=== PATIENT | male | born 1940 | race Caucasian/White ===

== ENCOUNTER 2019-03-25 12:11 | Observation (INO) ==
[2019-03-25] MEDS ORDERED: GADOBENATE DIMEGLUMINE 20 ML/VIAL IV ONE (12:12)
[2019-03-25 13:03] LABS: POC Blood Urea Nitrogen 17 mg/dl (8-23); POC CO2 27 mmol/L (22-30); POC Calcium, Ionized 1.15 mmol/L (1.16-1.32); POC Chloride 99 mmol/L (96-108); POC Creatinine 1.2 mg/dl (0.7-1.2); POC Glucose, Random 101 mg/dL (70-105); POC Potassium 3.8 mmol/L (3.3-5.1); POC Sodium 135 mmol/L (133-145)
--- NOTE | 2019-03-25 13:27 | Emergency Department Note ---
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 Childress, infectious disease specialist. He is not having any trouble now besides his chronic cough nor is he having fever. He is not immunocompromised. Dr. Childress called me personally and we discussed the case prior to him coming in. The concern is that the patient needs a work-up to make sure he does not have brain lesions before coming in the hospital so we discussed specific test order on that count. Again the patient denies any sp ecific symptoms besides a chronic cough. On review of systems patient notes that he has some ill fitting dentures, denies any rheumatologic disease besides degenerative arthritis. HIV was negative outpatient testing - Related Data Home Medications Medication Instructions Recorded Confirmed Ascorbate Calcium [Vitamin C] 500 mg PO DAILY 03/25/19 03/25/19 Aspirin [Aspirin EC] 325 mg PO DAILY 03/25/19 03/25/19 Atorvastatin [Lipitor] 40 mg PO HS 03/25/19 03/25/19 Calcium Carbonate/Vitamin D3 1 tab PO DAILY 03/25/19 03/25/19 [Calcium 600-Vit D3 400 Tablet] Clindamycin HCl [Cleocin] 300 mg PO TID 03/25/19 03/25/19 Hydrochlorothiazide [Oretic] 25 mg PO DAILY 03/25/19 03/25/19 Losartan Potassium [Cozaar] 100 mg PO DAILY 03/25/19 03/25/19 Lutein [Natural Lutein] 20 mg PO DAILY 03/25/19 03/25/19 Multivitamin [Daily Multiple 1 tab PO DAILY 03/25/19 03/25/19 Vitamin] Nabumetone [Relafen] 750 mg PO BIDCC 03/25/19 03/25/19 Omeprazole [PriLOSEC] 20 mg PO ACB 03/25/19 03/25/19 Resveratrol 250 mg PO DAILY 03/25/19 03/25/19 Ubidecarenone [Co Q-10] 200 mg PO DAILY 03/25/19 03/25/19 Vitamin E 400 unit PO DAILY 03/25/19 03/25/19 Allergies Allergy/AdvReac Type Severity Reaction Status Date / Time doxycycline Allergy Mild Rash Verified 03/25/19 12:19 Review of Systems All systems ED: reviewed and negative except as stated. Past Medical History - Past Medical History Attestation: Yes: The following information was validated with the patient. Medical history: Reports: arthritis (Osteo-of the knee), hypertension - Social History smoking status: Current every day smoker Physical Exam No acute distress resting comfortably. Normocephalic atraumatic. Conjunctive are clear sclerae white nonicteric. No nasal discharge or congestion. Oropharynx is pink and moist. Tongue is midline face is symmetrical. Neck is supple without lymphadenopathy or thyromegaly. No carotid bruit. Heart is regu lar rate and rhythm no murmur appreciated. Lungs are clear to auscultation bilaterally without wheezes rales rhonchi or respiratory distress. Abdomen is soft nontender nondistended. Trace to +1 edema bilaterally at ankles. He is awake alert oriented able to answer questions appropriately. No dysarthria or ataxia. I do not see a resting tremor. I watched him stand up and move around take off his shirt etc. and he seems to be moving without difficulty. I do not see any focal neurologic deficit or weakness on gross examination Limitations: no limitations Course Vital Signs Temperature 97.1 F 03/25/19 12:12 Pulse Rate 64 03/25/19 12:12 Respiratory Rate 18 03/25/19 12:12 Blood Pressure 134/73 03/25/19 12:12 Pulse Oximetry (%) 95 03/25/19 12:12 Temperature 97.1 F 03/25/19 12:12 Pulse Rate 57 L 03/25/19 14:13 Respiratory Rate 15 03/25/19 14:13 Blood Pressure 126/73 03/25/19 14:13 Pulse Oximetry (%) 97 03/25/19 14:13 Shortness of Breath/Dyspnea - Lab Data Lab results reviewed: Yes I reviewed the patient's lab results. Result diagrams: 03/25/19 12:33 03/25/19 12:33 Lab Results 03/25/19 03/25/19 03/25/19 Range/Units 12:33 12:33 12:33 WBC 4.5 (4.50-11.00) K/mcL RBC 3.96 L (4.63-6.08) M/mcL Hgb 13.1 L (13.7-17.5) g/dL Hct 36.6 L (40.1-51.0) % POC Hct (41.0-55.0) % MCV 92.4 (80.0-100.0) fL MCH 33.1 (26.0-34.0) pg MCHC 35.8 (31.0-36.0) g/dL RDW 12.8 (11.5-14.5) % Plt Count 163 (140-440) K/mcL MPV 11.0 H (7.4-10.4) fL Gran % 54.9 (38.0-78.0) % Lymph % (Auto) 26.6 (15.5-49.0) % [place] % (Auto) 12.0 (1.0-12.0) % Eos % (Auto) 4.9 (0.0-7.0) % Baso % (Auto) 1.6 (0.0-2.0) % Gran # 2.48 (1.80-8.00) K/mcL Lymph # (Auto) 1.20 L (1.50-4.80) K/mcL [place] # (Auto) 0.54 (0.10-0.90) K/mcL Eos # (Auto) 0.22 (0.00-0.70) K/mcL Baso # (Auto) 0.07 (0.00-0.30) K/mcL VBG Lactic Acid 1.1 (0.5-2.0) mmol/L POC Sodium (133-145) mmol/L Sodium 133 (133-145) mmol/L POC Potassium (3.3-5.1) mmol/L Potassium 3.9 (3.3-5.1) mmol/L POC Chloride (96-108) mmol/L Chloride 96 (96-108) mmol/L Carbon Dioxide 23 (22-30) mmol/L POC Total CO2 (22-30) mmol/L Anion Gap 14.0 (8-16) POC BUN (8-23) mg/dl BUN 15 (8-23) mg/dl Creatinine 1.3 H (0.7-1.2) mg/dl POC Creatinine (0.7-1.2) mg/dl GFR Calculation 51 Glucose 103 (70-105) mg/dL POC Glucose (70-105) mg/dL Calcium 9.6 (8.6-10.4) mg/dl POC WB Ioniz Calcium (1.16-1.32) mmol/L Total Bilirubin 0.5 (0.0-1.0) mg/dL AST 42 H (0-37) U/l ALT 23 (0-40) U/l Alkaline Phosphatase 89 (39-117) U/L Total Protein 8.3 (5.9-8.4) gm/dL Albumin 4.6 (3.2-5.2) gm/dL Globulin 3.7 (2.2-3.7) gm/dL Albumin/Globulin Ratio 1.2 (1.0-2.3) 03/25/19 Range/Units 12:55 WBC (4.50-11.00) K/mcL RBC (4.63-6.08) M/mcL Hgb (13.7-17.5) g/dL Hct (40.1-51.0) % POC Hct 38.0 L (41.0-55.0) % MCV (80.0-100.0) fL MCH (26.0-34.0) pg MCHC (31.0-36.0) g/dL RDW (11.5-14.5) % Plt Count (140-440) K/mcL MPV (7.4-10.4) fL Gran % (38.0-78.0) % Lymph % (Auto) (15.5-49.0) % [place] % (Auto) (1.0-12.0) % Eos % (Auto) (0.0-7.0) % Baso % (Auto) (0.0-2.0) % Gran # (1.80-8.00) K/mcL Lymph # (Auto) (1.50-4.80) K/mcL [place] # (Auto) (0.10-0.90) K/mcL Eos # (Auto) (0.00-0.70) K/mcL Baso # (Auto) (0.00-0.30) K/mcL VBG Lactic Acid (0.5-2.0) mmol/L POC Sodium 135 (133-145) mmol/L Sodium (133-145) mmol/L POC Potassium 3.8 (3.3-5.1) mmol/L Potassium (3.3-5.1) mmol/L POC Chloride 99 (96-108) mmol/L Chloride (96-108) mmol/L Carbon Dioxide (22-30) mmol/L POC Total CO2 27 (22-30) mmol/L Anion Gap (8-16) POC BUN 17 (8-23) mg/dl BUN (8-23) mg/dl Creatinine (0.7-1.2) mg/dl POC Creatinine 1.2 (0.7-1.2) mg/dl GFR Calculation Glucose (70-105) mg/dL POC Glucose 101 (70-105) mg/dL Calcium (8.6-10.4) mg/dl POC WB Ioniz Calcium 1.15 L (1.16-1.32) mmol/L Total Bilirubin (0.0-1.0) mg/dL AST (0-37) U/l ALT (0-40) U/l Alkaline Phosphatase (39-117) U/L Total Protein (5.9-8.4) gm/dL Albumin (3.2-5.2) gm/dL Globulin (2.2-3.7) gm/dL Albumin/Globulin Ratio (1.0-2.3) - Radiology Data Radiology results reviewed: Yes I reviewed the patient's radiology results. MRI does not show evidence of fungal masses in the brain or orbits Disposition Pt seen by AVIATION SAFETY EQUIPMENT TECHNICIAN/PA only: No Clinical Impression: Cryptococcal pneumonitis Summary: MRI of the brain and orbits is ordered. Laboratories ordered RI does not show evidence of brain or orbital mass from Cryptococcus. Laboratory. Stable. Discussed case with Dr. Pak. He will consult on p atient will be admitted to Dr. Monique Disposition: Xfer As Inpt ([facility]) Condition: Fair Referrals: Everton Boucher MD [Primary Care Provider] - Angelito Childress MD [Physician] -
[2019-03-25 13:29] LABS: Basophils # (Auto) 0.07 K/mcL (0.00-0.30); Basophils % (Auto) 1.6 % (0.0-2.0); Eosinophils # (Auto) 0.22 K/mcL (0.00-0.70); Eosinophils % (Auto) 4.9 % (0.0-7.0); Granulocytes % (Auto) 54.9 % (38.0-78.0); Hematocrit 36.6 % (40.1-51.0); Hemoglobin 13.1 g/dL (13.7-17.5); Lymphocytes % (Auto) 26.6 % (15.5-49.0); Mean Cell Volume 92.4 fL (80.0-100.0); Mean Corpuscular HGB Conc 35.8 g/dL (31.0-36.0); Monocytes # (Auto) 0.54 K/mcL (0.10-0.90); Platelet Count 163 K/mcL (140-440); RBC 3.96 M/mcL (4.63-6.08); Red Cell Distribution Width 12.8 % (11.5-14.5); WBC 4.5 K/mcL (4.50-11.00)
[2019-03-25 13:48] LABS: ALT/SGPT 23 U/l (0-40); AST/SGOT 42 U/l (0-37); Albumin 4.6 gm/dL (3.2-5.2); Albumin/Globulin Ratio 1.2 (1.0-2.3); Alkaline Phosphatase 89 U/L (39-117); Bilirubin,Total 0.5 mg/dL (0.0-1.0); Blood Urea Nitrogen 15 mg/dl (8-23); Calcium 9.6 mg/dl (8.6-10.4); Carbon Dioxide 23 mmol/L (22-30); Chloride 96 mmol/L (96-108); Globulin 3.7 gm/dL (2.2-3.7); Glomerular Filtration Rate 51; Glucose 103 mg/dL (70-105)
--- NOTE | 2019-03-25 14:30 | Magnetic Resonance Report ---
CLINICAL INFORMATION: Cryptococcal meningitis TECHNIQUE: Sagittal, axial, coronal images of the brain. 19 mL MultiHance injected intravenously. COMPARISON: None. FINDINGS: No pathologic leptomeningeal or dural enhancement. Basilar cisterns are normal. No MR evidence for meningitis. Patient gives a history of cryptococcal meningitis although I am not given a history of immunocompromise. Clinical correlation is necessary. There is severe white matter abnormality in both cerebral hemispheres. There is extensive periventricular signal abnormality and subcortical white matter abnormality. There is no pathologic contrast enhancement. Appearance is consistent with severe white matter disease, probably secondary to small vessel ischemic change. Demyelinating disease, Lyme disease, ADEM could have a similar appearance. There is no brain abscess. No focal mass. There is no vasogenic edema or contrast enhancement. There is no restricted diffusion. No susceptibility. No evidence for hemorrhagic abnormality. Brainstem and cerebellum are negative. No intra-axial abnormality. Normal flow void within vessels at the base of the brain. Cavernous sinuses are negative. Temporal bones are negative. No evidence for mastoiditis. Frontal, and maxillary sinuses are negative. There is mild mucosal thickening within anterior ethmoid sinuses bilaterally. There is a 9 mm soft tissue abnormality which is within the clivus. This is anterior to the sella turcica. This is nonenhancing. This has a benign appearance. There is no associated bone destruction. No enhancing abnormality. Appearance is not consistent with aggressive infection. Orbits are negative. No intraorbital mass. Extraocular muscles are normal. Intraorbital fat and optic nerves are negative. IMPRESSION: 1. No pathologic leptomeningeal or dural enhancement. No evidence for meningitis 2. Severe white matter abnormality in both cerebral hemispheres. No enhancing lesions. No intraaxial abscess 3. Paranasal sinuses are negative. Orbits are negative. 4. 9 mm rounded soft tissue abnormality within the clivus. This has a benign appearance Interpreted and Authenticated by: Shivam Llamas 03/25/19
--- NOTE | 2019-03-25 15:56 | Infectious Disease Consult ---
History of Present Illness Patient information: Note initiated : 03/25/19 at 3:55 pm Service Date, if different from initiated Date: [] Patient: Nuno Eugene 79 y/o M admitted on for Shortness of breath. Chief Complaint: [] Consult date: 03/25/19 Requesting Physician: Dr Citlaly Kennedy Reason for Consult: cryptococcal infection of lungs Chief complaint: I have cough History of present illness: Mr. Eugene is a 79-year old man living in [place], [place]. He has been experiencing cough and recurrent sinusitis since last 5 years. The cough has been mildly productive with occasional yellowish sputum. No blood noted ever in the sputum. The cough has fluctuated off and on, but more so has stayed the same in last 5 years. He denies any fevers, chills, night sweats, weight loss, focal weakness or numbness, vision changes, headache, neck stiffness, belly pain. Endorses exertional SOB bang noticed while climbing stairs. It has been same since last 5 years. He underwent his routine annual physical in late february 2019, when a chest xray revealed right lung mass, suspicious for malignancy.Pt underwent CT chest on 03/[address] guided biopsy on 03/18 with samples sent for cytopath and histopath. CT chest on 03/04 showed 5.8 x 3.3 x 4.8 cm mass in right lower lobe and 1.4 x 2.3 x 1 cm mass in left upper lobe. s/p biopsy of right lung mass on 03/18 with path showing acute and chronic granulomatous inflammation and cryptococci. Pt has been referred to me for further management. Pt reports coming in contact with birds frequently for feeding (mocking birds, doves, blue stephy etc) at his house. He has traveled to [facility] couple of times in last 5 years. He is originally a resident of [facility] where he was born and grew up. 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 No international travel. No antibiotic allergies except for Doxycycline which gives him a rash. Past History Past medical history: HTN Hyperlipidemia chronic sinusitis Past family history: family Hx of congestive heart failure in father and brother no Hx of cryptococcal infection in family Past social history: lives with his daughter in [place]. retired smoked until 23 years of age doesnot consume alc, doesnot inject any drugs Medications and Allergies Home Medications Medication Instructions Recorded Confirmed Type Ascorbate Calcium [Vitamin C] 500 mg PO DAILY 03/25/19 03/25/19 History Aspirin [Aspirin EC] 325 mg PO DAILY 03/25/19 03/25/19 History Atorvastatin [Lipitor] 40 mg PO HS 03/25/19 03/25/19 History Calcium Carbonate/Vitamin D3 1 tab PO DAILY 03/25/19 03/25/19 History [Calcium 600-Vit D3 400 Tablet] Clindamycin HCl [Cleocin] 300 mg PO TID 03/25/19 03/25/19 History Hydrochlorothiazide [Oretic] 25 mg PO DAILY 03/25/19 03/25/19 History Losartan Potassium [Cozaar] 100 mg PO DAILY 03/25/19 03/25/19 History Lutein [Natural Lutein] 20 mg PO DAILY 03/25/19 03/25/19 History Multivitamin [Daily Multiple 1 tab PO DAILY 03/25/19 03/25/19 History Vitamin] Nabumetone [Relafen] 750 mg PO BIDCC 03/25/19 03/25/19 History Omeprazole [PriLOSEC] 20 mg PO ACB 03/25/19 03/25/19 History Resveratrol 250 mg PO DAILY 03/25/19 03/25/19 History Ubidecarenone [Co Q-10] 200 mg PO DAILY 03/25/19 03/25/19 History Vitamin E 400 unit PO DAILY 03/25/19 03/25/19 History Allergies Allergy/AdvReac Type Severity Reaction Status Date / Time doxycycline Allergy Mild Rash Verified 03/25/19 12:19 Physical Examination Vital signs: Temp Pulse Resp BP Pulse Ox 36.2 C 56 L 15 155/99 98 03/25/19 12:12 03/25/19 15:43 03/25/19 15:43 03/25/19 15:43 03/25/19 15:43 General appearance: no acute distress Eyes pulmonary: nonicteric ENT: oropharynx moist, other (has dentures) Auscultation: left: clear, right: other (has inspiratory crackles over right lower lobe best heard below scapula) Cardiovascular: regular rate and rhythm, other (no murmur) Gastrointestinal: normoactive bowel sounds, soft, non-tender Integumentary: normal Extremities: no cyanosis, pink and warm, pulses normal, edema (over legs b/l) Musculoskeletal: no deformities normal mental status, non-focal exam, pupils equal and round, motor strength normal and symmetric, other (reflexes (biceps, brachioradialis, triceps, valentino ceps, ankle) present b/l. Sensation intact b/l upper and lower extremities) mood appropriate Results - Laboratory Findings CBC and BMP: 03/26/19 06:12 03/26/19 06:12 Abnormal lab findings: Abnormal Labs 03/25/19 03/25/19 03/25/19 12:33 12:33 12:55 RBC 3.96 L Hgb 13.1 L Hct 36.6 L POC Hct 38.0 L MPV 11.0 H Lymph # (Auto) 1.20 L Creatinine 1.3 H POC WB Ioniz Calcium 1.15 L AST 42 H Assessment and Plan - Narrative A/P Narrative: A: 1. Cryptococcal infection of both lungs: cough is the only symptom - no FINANCE SPECIALIST or eye involvement based on exam and MRI brain/orbit with contrast done today. In absence of clinical symptoms such as headache, neck stiffness, focal neuro deficit and normal neuroimaging; will defer LP as benefits outweigh risks of invasive procedure - risk factors: living in endemic area ([facility]), frequent contact with birds, age - CT chest on 03/04 showed 5.8 x 3.3 x 4.8 cm mass in right lower lobe and 1.4 x 2.3 x 1 cm mass in left upper lobe. 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 gattii infection in immunocompetent patients. Will observe him in the hospital for 2 days while on therapy. Recommendations: - Start PO Fluconazole 400 mg once daily. will plan for a 6-month course with weekly monitoring of CBC, CMP. Fax results to [phone] - send induced sputum for gram stain and C/S, fungal stain and C/S - repeat CMP on Saturday - no droplet precautions needed. Standard precautions with hand hygiene are adequate - await serum cryptococcal antigen which was sent out by PCP 2 days ago - In case there is worsening of respiratory status, consider CT chest. If there is concerns for IRIS, start PO Prednisone at 0.5 mg/kg with a taper over 2 weeks. - F/u with ID clinic 2 weeks after discharge. Angelito Childress MD Infectious diseases
[2019-03-25] MEDS ORDERED: FLUCONAZOLE 100 MG TABLET PO SCH (16:00)
[2019-03-25] MEDS ORDERED: SODIUM CHLORIDE 4 MEQ/ML IV ONE ×2 (16:30→16:45)
[2019-03-25] MEDS ORDERED: ONDANSETRON 4 MG ODT TABLET SL PRN (17:32)
[2019-03-25] MEDS ORDERED: POLYETHYLENE GLYCOL 3350 17 GM PACKET PO PRN (17:32)
[2019-03-25] MEDS ORDERED: MAGNESIUM SULFATE 2 GM/50 ML BAG IV PRN (17:32)
[2019-03-25] MEDS ORDERED: ACETAMINOPHEN 325 MG TABLET PO PRN (17:32)
[2019-03-25] MEDS ORDERED: BISACODYL 10 MG SUPP.RECT PR PRN (17:32)
[2019-03-25] MEDS ORDERED: guaiFENesin/CODEINE 10 ML UDC PO PRN (17:32)
[2019-03-25] MEDS ORDERED: MELATONIN 3 MG TABLET PO PRN (17:32)
[2019-03-25] MEDS ORDERED: NABUMETONE 750 MG TABLET PO SCH (17:32)
[2019-03-25] MEDS ORDERED: POTASSIUM CHLORIDE 20 MEQ PACKET PO PRN (17:32)
--- NOTE | 2019-03-25 20:05 | Internal Med History&Physical ---
Medical - H&P: HPI Patient information: Note initiated : 03/25/19 at 8:03 pm Service Date, if different from initiated Date: [] Patient: Nuno Eugene a 79 y/o M admitted on 03/25/19 for Shortness of breath. Chief Complaint: [] Chief complaint: Cough, recent diagnosis of cryptococcus pneumonia History of present illness: Mr. Eugene is a 79 year old M who was diagnosed with cryptococcus pneumonia following an evaluation for cough progressive over the last couple of weeks. Patient was seen by his primary care physician at [place] and underwent a CT scan that showed masslike lesion and subsequent biopsy revealed cryptococcus. Subsequently infectious is consulted and patient was asked by infectious disease specialist to be admitted for treatment while undergoing monitoring for adverse reaction to treatment. Patient was evaluated in the ER with MRI brain which was unremarkable. [facility] hospitalist service was consulted At the time evaluation patient is alert and oriented. Denies any active distress. Denies recent travel outside [facility]. He denies recent hospitalization or being on immunosuppressive work cancer therapy. He further denies prior similar episodes or high risk behavior. He lives in [place] and has moved from [facility] 6 years ago following his . He is currently retired. Denies smoking or alcoholism. Denies fever, weight loss, night sweats, rash arthralgia myalgia headache or photophobia Review of systems A 10 point review system was performed and is negative except for ones cussed above Medical - H&P: PM Medical history: Hypertension Hyperlipidemia GERD DJD Social history: Lives in [facility] Retired Moved from [place] Medical - H&P: Meds Home Medications Medication Instructions Recorded Confirmed Type Ascorbate Calcium [Vitamin C] 500 mg PO DAILY 03/25/19 03/25/19 History Aspirin [Aspirin EC] 325 mg PO DAILY 03/25/19 03/25/19 History Atorvastatin [Lipitor] 40 mg PO HS 03/25/19 03/25/19 History Calcium Carbonate/Vitamin D3 1 tab PO DAILY 03/25/19 03/25/19 History [Calcium 600-Vit D3 400 Tablet] Clindamycin HCl [Cleocin] 300 mg PO TID 03/25/19 03/25/19 History Hydrochlorothiazide [Oretic] 25 mg PO DAILY 03/25/19 03/25/19 History Losartan Potassium [Cozaar] 100 mg PO DAILY 03/25/19 03/25/19 History Lutein [Natural Lutein] 20 mg PO DAILY 03/25/19 03/25/19 History Multivitamin [Daily Multiple 1 tab PO DAILY 03/25/19 03/25/19 History Vitamin] Nabumetone [Relafen] 750 mg PO BIDCC 03/25/19 03/25/19 History Omeprazole [PriLOSEC] 20 mg PO ACB 03/25/19 03/25/19 History Resveratrol 250 mg PO DAILY 03/25/19 03/25/19 History Ubidecarenone [Co Q-10] 200 mg PO DAILY 03/25/19 03/25/19 History Vitamin E 400 unit PO DAILY 03/25/19 03/25/19 History Allergies Allergy/AdvReac Type Severity Reaction Status Date / Time doxycycline Allergy Mild Rash Verified 03/25/19 12:19 Medical - H&P: Exam - Constitutional Vitals: Temp Pulse Resp BP Pulse Ox 98.0 F 56 L 24 H 147/82 95 03/25/19 18:53 03/25/19 18:53 03/25/19 18:53 03/25/19 18:53 03/25/19 18:53 General appearance: no acute distress Exam: Alert oriented and ambulating Head normocephalic Oral cavity dry No ear nose discharge Neck lymphadenopathy S1-S2 regular rhythm no murmur Diminished breath sounds bases Abdomen soft nontender nondistended Lower extremity no sinus clubbing no joint swelling Skin no suspicious lesion Psych alert cooperative Neuro nonfocal Medical - H&P: Reslt - Labs CBC & Chem 7: 03/25/19 12:33 03/25/19 12:33 Labs: Short CBC 03/25/19 Range/Units 12:33 WBC 4.5 (4.50-11.00) K/mcL Hgb 13.1 L (13.7-17.5) g/dL Hct 36.6 L (40.1-51.0) % Plt Count 163 (140-440) K/mcL BMP 03/25/19 12:33 Sodium 133 Potassium 3.9 Chloride 96 Carbon Dioxide 23 BUN 15 Creatinine 1.3 H Glucose 103 Calcium 9.6 Liver Function 03/25/19 Range/Units 12:33 Total Bilirubin 0.5 (0.0-1.0) mg/dL AST 42 H (0-37) U/l ALT 23 (0-40) U/l Alkaline Phosphatase 89 (39-117) U/L Albumin 4.6 (3.2-5.2) gm/dL Medical - H&P: A/P (1) Cryptococcal pneumonitis Current visit: Yes Status: Acute * Cryptococcal pneumonia bilateral. Immunocompetent patient. ID on board. Started on fluconazole 400. Patient leave admitted for observation while ongoing close monitoring for IRIS * Hypertension continue thiazide/ARB * GERD continue PPI * Hyperlipidemia continue statin * Prophylaxis heparin * Full code Plan * Observation admit * Antifungals per ID * Pre-existing medical condition management as above * PT OT nutrition support * Possible discharge in 48 hours
[2019-03-25] MEDS: SENNOSIDES/DOCUSATE SODIUM 1 TAB TABLET PO SCH (21:05)
[2019-03-25] MEDS: DOCUSATE SODIUM 100 MG CAPSULE PO SCH (21:05)
[2019-03-25] MEDS: HEPARIN 5,000 UNIT/ML VIAL SQ SCH (21:05)
[2019-03-25] MEDS: ATORVASTATIN 40 MG TABLET PO SCH (21:05)
[2019-03-25] MEDS: 0.9 % SODIUM CHLORIDE 10 ML SYRINGE IV SCH (21:06)
[2019-03-26] MEDS: 0.9 % SODIUM CHLORIDE 10 ML SYRINGE IV SCH ×3 (05:19→21:19)
[2019-03-26] MEDS: OMEPRAZOLE 20 MG CAPSULE PO SCH (07:16)
[2019-03-26] MEDS: LOSARTAN 50 MG TABLET PO SCH (08:53)
[2019-03-26] MEDS: HYDROCHLOROTHIAZIDE 25 MG TABLET PO SCH (08:53)
[2019-03-26] MEDS: FLUCONAZOLE 100 MG TABLET PO SCH (08:53)
[2019-03-26] MEDS: DOCUSATE SODIUM 100 MG CAPSULE PO SCH ×2 (08:53→21:18)
[2019-03-26] MEDS: HEPARIN 5,000 UNIT/ML VIAL SQ SCH ×2 (08:53→21:17)
[2019-03-26] MEDS: NABUMETONE 500 MG TABLET PO SCH ×2 (08:53→17:32)
[2019-03-26] MEDS: ASPIRIN 325 MG ENTERIC COATED TABLET PO SCH (08:53)
[2019-03-26] MEDS: MULTIVIT,THER IRON,CA,FA & MIN 1 TABLET PO SCH (08:53)
[2019-03-26] MEDS: RESVERATROL 250 MG PO SCH (08:56)
[2019-03-26 09:55] LABS: Basophils # (Auto) 0.06 K/mcL (0.00-0.30); Basophils % (Auto) 1.4 % (0.0-2.0); Eosinophils # (Auto) 0.21 K/mcL (0.00-0.70); Granulocytes % (Auto) 51.1 % (38.0-78.0); Hematocrit 33.4 % (40.1-51.0); Hemoglobin 12.1 g/dL (13.7-17.5); Lymphocytes # (Auto) 1.18 K/mcL (1.50-4.80); Lymphocytes % (Auto) 28.2 % (15.5-49.0); Mean Corpuscular HGB Conc 36.2 g/dL (31.0-36.0); Mean Platelet Volume 10.6 fL (7.4-10.4); Monocytes # (Auto) 0.64 K/mcL (0.10-0.90); Monocytes % (Auto) 15.3 % (1.0-12.0); Platelet Count 168 K/mcL (140-440); RBC 3.63 M/mcL (4.63-6.08); Red Cell Distribution Width 12.8 % (11.5-14.5); WBC 4.2 K/mcL (4.50-11.00)
--- NOTE | 2019-03-26 10:18 | Internal Med Progress Note ---
Medical - PN: Subj Patient information: Note initiated : 03/26/19 at 10:15 am Service Date, if different from initiated Date: [] Patient: Nuno Eugene a 79 y/o M admitted on 03/25/19 for Shortness of breath. Chief Complaint: [] Interval history: Mr. Eugene is a 79 year old M who was diagnosed with cryptococcus pneumonia following an evaluation for cough progressive over the last couple of weeks. Patient was seen by his primary care physician at [place] and underwent a CT scan that showed masslike lesion and subsequent biopsy revealed cryptococcus. Subsequently infectious is consulted and patient was asked by infectious disease specialist to be admitted for treatment while undergoing monitoring for adverse reaction to treatment. Patient was evaluated in the ER with MRI brain which was unremarkable. [facility] hospitalist service was consulted At the time evaluation patient is alert and oriented. Denies any active distress. Denies recent travel outside [facility]. He denies recent hospitalization or being on immunosuppressive work cancer therapy. He further denies prior similar episodes or high risk behavior. He lives in [place] and has moved from [facility] 6 years ago following his . He is currently retired. Denies smoking or alcoholism. Denies fever, weight loss, night sweats, rash arthralgia myalgia headache or photophobia 03/26-patient doing well. No overnight events. No concerns per staff. Denies fever chills or worsening cough. Ambulating. Anticipate discharge in 24 hours. Continue monitoring biochemical profile/LFTs and response to treatment. - Constitutional Vitals: Vital Signs Temp Pulse Resp BP Pulse Ox 96.9 F L 57 L 18 131/72 96 03/26/19 07:05 03/26/19 07:05 03/26/19 07:05 03/26/19 07:05 03/26/19 07:05 Period Temp Pulse Resp BP Sys/Hernandez Pulse Ox Last 24 Hr 96.9 F-98.0 F 51-66 11-24 120-155/56-105 93-100 Intake and Output 03/25/19 03/26/19 03/26/19 21:59 05:59 13:59 Intake Total 200 240 Output Total 900 350 685 Balance -900 -150 -445 Weight 206 lb Intake & Output: Intake & Output 03/25/19 03/26/19 03/26/19 21:59 05:59 13:59 Intake Total 200 240 Output Total 900 350 685 Balance -900 -150 -445 Weight 206 lb Intake: Oral 200 240 Output: Void Amount 900 350 685 Other: Urine Appearance Clear Clear Clear Urine Color Bright Yellow Bright Yellow Bright Yellow Urine Odor Normal General appearance: no acute distress Exam: Alert oriented Nonlabored breathing No anxiety No lymphedema Medical - PN: Obj Da - Labs CBC & Chem 7: 03/25/19 18:02 03/25/19 12:33 Labs: Abnormal Lab Results 03/25/19 03/25/19 03/25/19 18:02 12:55 12:33 WBC 4.2 L RBC 3.63 L Hgb 12.1 L Hct 33.4 L POC Hct 38.0 L MCHC 36.2 H MPV 10.6 H [place] % (Auto) 15.3 H Lymph # (Auto) 1.18 L Creatinine 1.3 H POC WB Ioniz Calcium 1.15 L AST 42 H 03/25/19 12:33 WBC RBC 3.96 L Hgb 13.1 L Hct 36.6 L POC Hct MCHC MPV 11.0 H [place] % (Auto) Lymph # (Auto) 1.20 L Creatinine POC WB Ioniz Calcium AST Meds: Medications Acetaminophen (Tylenol) 650 mg PO Q4-6HP PRN; Protocol PRN Reason: Per Pain Protocol/Fever > 101 Aspirin (Ecotrin) 325 mg PO DAILY [facility] Last Admin: 03/26/19 08:53 Dose: 325 mg Documented by: Atorvastatin Calcium (Lipitor) 40 mg PO HS [facility] Last Admin: 03/25/19 21:05 Dose: 40 mg Documented by: Bisacodyl (Dulcolax) 10 mg CO Q2-3DAYS PRN PRN Reason: Constipation Docusate Sodium (Colace) 100 mg PO BID [facility] Last Admin: 03/26/19 08:53 Dose: 100 mg Documented by: Fluconazole (Diflucan) 400 mg PO DAILY [facility]; Protocol Last Admin: 03/26/19 08:53 Dose: 400 mg Documented by: Guaifenesin/Codeine Phosphate (Robitussin Ac) 10 ml PO Q4HP PRN PRN Reason: Cough Heparin Sodium (Porcine) (Heparin) 5,000 unit SQ Q12 [facility] Last Admin: 03/26/19 08:53 Dose: 5,000 unit Documented by: Hydrochlorothiazide (Oretic) 25 mg PO DAILY [facility] Last Admin: 03/26/19 08:53 Dose: 25 mg Documented by: Magnesium Sulfate (Magnesium Sulfate) 2 gm in 50 mls @ 50 mls/hr IV UD PRN PRN Reason: MG = or < 1.7 Iron Carb/Multivit/[employer]/Folic Acid (Multivitamin W/Minerals) 1 tab PO DAILY [facility] Last Admin: 03/26/19 08:53 Dose: 1 tab Documented by: Losartan Potassium (Cozaar) 100 mg PO DAILY [facility] Last Admin: 03/26/19 08:53 Dose: 100 mg Documented by: Melatonin (Melatonin 3mg Tablet) 3 mg PO HSP PRN PRN Reason: Insomnia Nabumetone (Relafen) 750 mg PO BIDCC [facility]; Protocol Last Admin: 03/26/19 08:53 Dose: 750 mg Documented by: Omeprazole (Prilosec) 20 mg PO ACB [facility] Last Admin: 03/26/19 07:16 Dose: 20 mg Documented by: Ondansetron HCl (Zofran Odt) 4 mg SL Q4-6HP PRN; Protocol PRN Reason: Nausea And Vomiting Resveratrol 250 Mg (Tab) 1 dose PO DAILY [facility] Last Admin: 03/26/19 08:56 Dose: Not Given Documented by: Polyethylene Glycol (Miralax) 17 gm PO DAILYP PRN PRN Reason: Constipation Potassium Chloride (Klor-Con) 40 meq PO DAILYP PRN PRN Reason: K+ < 3.5 Senna/Docusate Sodium (Senna Plus Tablet) 1 tab PO HS [facility] Last Admin: 03/25/19 21:05 Dose: Not Given Documented by: Sodium Chloride (Saline Flush) 10 ml IV Q8 [facility] Last Admin: 03/26/19 05:19 Dose: 10 ml Documented by: Medical - PN: A/P - Time Spent With Patient Total time spent is greater than 50% in coordination of care (as documented) at patient's floor/unit and/or counseling patient: 15 - 24 minutes (1) Cryptococcal pneumonitis Status: Acute Assessment and plan: * Cryptococcal pneumonia bilateral. Immunocompetent patient. ID initiated on fluconazole 400. Continue close monitoring for IRIS * Hypertension well-controlled on home dose thiazide/ARB * GERD continue PPI * Hyperlipidemia continue statin * Prophylaxis heparin * Full code Plan * Continue observation * Pre-existing medical condition management as above * PT OT nutrition support Current Visit: Yes
[2019-03-26 10:54] LABS: Basophils # (Auto) 0.05 K/mcL (0.00-0.30); Basophils % (Auto) 1.4 % (0.0-2.0); Eosinophils # (Auto) 0.21 K/mcL (0.00-0.70); Eosinophils % (Auto) 5.9 % (0.0-7.0); Granulocytes % (Auto) 51.3 % (38.0-78.0); Hematocrit 32.9 % (40.1-51.0); Hemoglobin 11.9 g/dL (13.7-17.5); Lymphocytes # (Auto) 0.96 K/mcL (1.50-4.80); Lymphocytes % (Auto) 27.2 % (15.5-49.0); Mean Cell Volume 92.2 fL (80.0-100.0); Mean Corpuscular HGB Conc 36.2 g/dL (31.0-36.0); Mean Platelet Volume 11.1 fL (7.4-10.4); Monocytes % (Auto) 14.2 % (1.0-12.0); Platelet Count 153 K/mcL (140-440); RBC 3.57 M/mcL (4.63-6.08); Red Cell Distribution Width 12.8 % (11.5-14.5); WBC 3.5 K/mcL (4.50-11.00)
[2019-03-26 11:11] LABS: ALT/SGPT 18 U/l (0-40); AST/SGOT 31 U/l (0-37); Albumin 3.8 gm/dL (3.2-5.2); Albumin/Globulin Ratio 1.2 (1.0-2.3); Alkaline Phosphatase 69 U/L (39-117); Bilirubin,Direct < 0.2 mg/dL (0.0-0.3); Bilirubin,Total 0.6 mg/dL (0.0-1.0); Blood Urea Nitrogen 15 mg/dl (8-23); Calcium 9.2 mg/dl (8.6-10.4); Carbon Dioxide 24 mmol/L (22-30); Chloride 100 mmol/L (96-108); Globulin 3.1 gm/dL (2.2-3.7); Glomerular Filtration Rate 51; Glucose 88 mg/dL (70-105); Lactate Dehydrogenase 207 U/L (94-250); Phosphorous 4.1 mg/dL (2.7-4.5); Triglycerides 274 mg/dl (<150); Uric Acid 9.9 mg/dL (2.5-8.0)
[2019-03-26] MEDS: ATORVASTATIN 40 MG TABLET PO SCH (21:18)
[2019-03-26] MEDS: SENNOSIDES/DOCUSATE SODIUM 1 TAB TABLET PO SCH (21:18)
[2019-03-27] MEDS: 0.9 % SODIUM CHLORIDE 10 ML SYRINGE IV SCH (06:06)
[2019-03-27 08:09] LABS: Basophils # (Auto) 0.05 K/mcL (0.00-0.30); Basophils % (Auto) 1.6 % (0.0-2.0); Eosinophils # (Auto) 0.16 K/mcL (0.00-0.70); Hematocrit 32.9 % (40.1-51.0); Hemoglobin 11.6 g/dL (13.7-17.5); Lymphocytes # (Auto) 0.94 K/mcL (1.50-4.80); Lymphocytes % (Auto) 29.2 % (15.5-49.0); Mean Cell Volume 92.7 fL (80.0-100.0); Mean Corpuscular HGB Conc 35.3 g/dL (31.0-36.0); Mean Platelet Volume 11.1 fL (7.4-10.4); Monocytes # (Auto) 0.49 K/mcL (0.10-0.90); Monocytes % (Auto) 15.2 % (1.0-12.0); Platelet Count 154 K/mcL (140-440); RBC 3.55 M/mcL (4.63-6.08); Red Cell Distribution Width 12.8 % (11.5-14.5); WBC 3.2 K/mcL (4.50-11.00)
[2019-03-27 08:11] LABS: ALT/SGPT 17 U/l (0-40); AST/SGOT 27 U/l (0-37); Albumin 3.8 gm/dL (3.2-5.2); Albumin/Globulin Ratio 1.2 (1.0-2.3); Alkaline Phosphatase 64 U/L (39-117); Bilirubin,Direct < 0.2 mg/dL (0.0-0.3); Bilirubin,Total 0.6 mg/dL (0.0-1.0); Blood Urea Nitrogen 18 mg/dl (8-23); Calcium 8.9 mg/dl (8.6-10.4); Carbon Dioxide 24 mmol/L (22-30); Chloride 99 mmol/L (96-108); Globulin 3.3 gm/dL (2.2-3.7); Glomerular Filtration Rate 56; Glucose 91 mg/dL (70-105); Lactate Dehydrogenase 204 U/L (94-250); Phosphorous 3.6 mg/dL (2.7-4.5); Triglycerides 179 mg/dl (<150); Uric Acid 9.9 mg/dL (2.5-8.0)
[2019-03-27] MEDS: HEPARIN 5,000 UNIT/ML VIAL SQ SCH (08:52)
[2019-03-27] MEDS: FLUCONAZOLE 100 MG TABLET PO SCH (08:53)
[2019-03-27] MEDS: DOCUSATE SODIUM 100 MG CAPSULE PO SCH (08:53)
[2019-03-27] MEDS: LOSARTAN 50 MG TABLET PO SCH (08:53)
[2019-03-27] MEDS: NABUMETONE 500 MG TABLET PO SCH (08:53)
[2019-03-27] MEDS: MULTIVIT,THER IRON,CA,FA & MIN 1 TABLET PO SCH (08:53)
[2019-03-27] MEDS: OMEPRAZOLE 20 MG CAPSULE PO SCH (08:53)
[2019-03-27] MEDS: HYDROCHLOROTHIAZIDE 25 MG TABLET PO SCH (08:53)
[2019-03-27] MEDS: ASPIRIN 325 MG ENTERIC COATED TABLET PO SCH (08:53)
[2019-03-27] MEDS: RESVERATROL 250 MG PO SCH (09:04)
--- NOTE | 2019-03-27 09:53 | Discharge Summary ---
Medical - DS: Prov Patient information: Note initiated : 03/27/19 at 9:50 am Service Date, if different from initiated Date: [] Patient: Nuno Eugene 79 y/o M admitted on 03/25/19 for Shortness of breath. Chief Complaint: [] Date of admission: 03/25/19 17:32 Discharge date: 03/27/19 Primary care physician: Everton Boucher Consults: 03/25/19 13:40 Consult to Physician [CONS] Stat Comment: Consulting Provider: Angelito Childress Reason For Exam: Physician to Consult 03/25/19 16:45 Consult to Physician [CONS] Stat Comment: Consulting Provider: Adithya Hickey Reason For Exam: Physician to Consult Medical - DS: Meds - Discharge Medications Prescriptions: Fluconazole [Diflucan] 400 mg PO DAILY #30 tab Transmission Status: Pending to [id number] Active and Home Medications: Home Medications Ascorbate Calcium [Vitamin C] 500 mg PO DAILY 03/25/19 [History Confirmed 03/25/19 Last Taken 03/25/19 09:00 500 MG.] Aspirin [Aspirin EC] 325 mg PO DAILY 03/25/19 [History Confirmed 03/25/19 Last Taken 03/25/19 09:00 325 MG.] Atorvastatin [Lipitor] 40 mg PO HS 03/25/19 [History Confirmed 03/25/19 Last Taken 03/24/19 21:00 40 MG.] Calcium Carbonate/Vitamin D3 [Calcium 600-Vit D3 400 Tablet] 1 tab PO DAILY 03/25/19 [History Confirmed 03/25/19 Last Taken 03/25/19 09:00 1 TAB] Clindamycin HCl [Cleocin] 300 mg PO TID 03/25/19 [History Confirmed 03/25/19 Last Taken 03/25/19 12:00 300 MG.] Hydrochlorothiazide [Oretic] 25 mg PO DAILY 03/25/19 [History Confirmed 03/25/19 Last Taken 03/25/19 09:00 25 MG.] Losartan Potassium [Cozaar] 100 mg PO DAILY 03/25/19 [History Confirmed 03/25/19 Last Taken 03/25/19 09:00 100 MG.] Lutein [Natural Lutein] 20 mg PO DAILY 03/25/19 [History Confirmed 03/25/19 Last Taken 03/25/19 09:00 20 MG.] Multivitamin [Daily Multiple Vitamin] 1 tab PO DAILY 03/25/19 [History Confirmed 03/25/19 Last Taken 03/25/19 09:00 1 TAB] Nabumetone [Relafen] 750 mg PO BIDCC 03/25/19 [History Confirmed 03/25/19 Last Taken 03/25/19 18:15 750 MG.] Omeprazole [Prilosec] 20 mg PO ACB 03/25/19 [History Confirmed 03/25/19 Last Taken 03/25/19 07:30 20 MG.] Resveratrol 250 mg PO DAILY 03/25/19 [History Confirmed 03/25/19 Last Taken 03/25/19 09:00 250 MG.] Ubidecarenone [Co Q-10] 200 mg PO DAILY 03/25/19 [History Confirmed 03/25/19 Last Taken 03/25/19 09:00 200 MG.] Vitamin E 400 unit PO DAILY 03/25/19 [History Confirmed 03/25/19 Last Taken 03/25/19 09:00 400 UNITS] Fluconazole [Diflucan] 400 mg PO DAILY #30 tab 03/27/19 [Rx Last Taken Unknown] Medical - DS: Hosp Hospital Course: Discharge diagnosis * Cryptococcal pneumonia bilateral. Immunocompetent patient. On fluconazole 400 daily per ID. Discharging home with advised to follow-up with ID as scheduled by Dr. Childress. Detailed instruction regarding post discharge and follow-up instructions as per infection disease specialist as below * Hypertension well-controlled on home dose thiazide/ARB * GERD managed on home dose PPI * Hyperlipidemia continue statin ID Recommendations: -Continue PO Fluconazole 400 mg once daily. will plan for a 6-month course with weekly monitoring of CBC, CMP. Fax results to [phone] - F/u with ID clinic 2 weeks after discharge. Hospital course Mr. Eugene is a 79 year old M who was diagnosed with cryptococcus pneumonia following an evaluation for cough progressive over the last couple of weeks. Patient was seen by his primary care physician at [place] and underwent a CT scan that showed masslike lesion and subsequent biopsy revealed cryptococcus. Subsequently infectious is consulted and patient was asked by infectious disease specialist to be admitted for treatment while undergoing monitoring for adverse reaction to treatment. Patient was evaluated in the ER with MRI brain which was unremarkable. Subsequently hospitalist service was consulted At the time evaluation patient is alert and oriented. Denies any active distress. Denies recent travel outside [place]. He denies recent hospitalization or being on immunosuppressive work cancer therapy. He further denies prior similar episodes or high risk behavior. He lives in [place] and has moved from [facility] 6 years ago following his . He is currently retired. Denies smoking or alcoholism. Denies fever, weight loss, night sweats, rash arthralgia myalgia headache or photophobia 03/26-patient doing well. No overnight events. No concerns per staff. Denies fever chills or worsening cough. Ambulating. Anticipate discharge in 24 hours. Continue monitoring biochemical profile/LFTs and response to treatment. 03/27-patient doing well. No overnight events. No concerns staff. No fever chills. White count 3.2, LFTs within normal limits. No adverse reaction noted to initiation of antifungals. Discharging with advice as above Discharge diagnosis: . - Time Spent with Patient Total time spent providing and/or coordinating discharge services: Greater than 30 minutes Medical - DS: Exam - Constitutional Vitals: Vital Signs Temp Pulse Resp BP BP Pulse Ox 03/27/19 08:00 97.2 F 18 138/74 96 03/27/19 03:24 97.7 F 60 14 125/72 96 03/26/19 23:15 97.7 F 80 14 104/61 95 03/26/19 19:04 97.4 F 70 16 117/75 95 03/26/19 16:00 97.5 F 56 L 18 126/75 95 03/26/19 12:00 97.7 F 62 16 130/74 97 Intake and Output 03/26/19 03/27/19 03/27/19 21:59 05:59 13:59 Intake Total 1440 450 Output Total 850 550 Balance 590 -100 Intake: Oral 1440 450 Output: Void Amount 850 550 Other: Meal Dinner Percent of Meal Consumed 100% Feeding Ability Independent Urine Appearance Clear Clear Urine Color Bright Yellow Bright Yellow Urine Odor Normal Normal Weight 198 lb Medical - DS: Data Labs on day of discharge: Labs from last 24 hours 03/27/19 03/27/19 03/26/19 06:04 06:04 06:12 WBC 3.2 L 3.5 L RBC 3.55 L 3.57 L Hgb 11.6 L 11.9 L Hct 32.9 L 32.9 L MCV 92.7 92.2 MCH 32.7 33.3 MCHC 35.3 36.2 H RDW 12.8 12.8 Plt Count 154 153 MPV 11.1 H 11.1 H Gran % 49.0 51.3 Lymph % (Auto) 29.2 27.2 [place] % (Auto) 15.2 H 14.2 H Eos % (Auto) 5.0 5.9 Baso % (Auto) 1.6 1.4 Gran # 1.58 L 1.81 Lymph # (Auto) 0.94 L 0.96 L [place] # (Auto) 0.49 0.50 Eos # (Auto) 0.16 0.21 Baso # (Auto) 0.05 0.05 Sodium 136 Potassium 3.6 Chloride 99 Carbon Dioxide 24 Anion Gap 13.0 BUN 18 Creatinine 1.2 GFR Calculation 56 Glucose 91 Uric Acid 9.9 H Calcium 8.9 Phosphorus 3.6 Magnesium 1.7 Total Bilirubin 0.6 Direct Bilirubin < 0.2 GGT 29 AST 27 ALT 17 Alkaline Phosphatase 64 Lactate Dehydrogenase 204 Total Protein 7.1 Albumin 3.8 Globulin 3.3 Albumin/Globulin Ratio 1.2 Triglycerides 179 H 03/26/19 03/25/19 06:12 18:02 WBC 4.2 L RBC 3.63 L Hgb 12.1 L Hct 33.4 L MCV 92.0 MCH 33.3 MCHC 36.2 H RDW 12.8 Plt Count 168 MPV 10.6 H Gran % 51.1 Lymph % (Auto) 28.2 [place] % (Auto) 15.3 H Eos % (Auto) 5.0 Baso % (Auto) 1.4 Gran # 2.09 Lymph # (Auto) 1.18 L [place] # (Auto) 0.64 Eos # (Auto) 0.21 Baso # (Auto) 0.06 Sodium 136 Potassium 3.7 Chloride 100 Carbon Dioxide 24 Anion Gap 12.0 BUN 15 Creatinine 1.3 H GFR Calculation 51 Glucose 88 Uric Acid 9.9 H Calcium 9.2 Phosphorus 4.1 Magnesium 1.8 Total Bilirubin 0.6 Direct Bilirubin < 0.2 GGT 30 AST 31 ALT 18 Alkaline Phosphatase 69 Lactate Dehydrogenase 207 Total Protein 6.9 Albumin 3.8 Globulin 3.1 Albumin/Globulin Ratio 1.2 Triglycerides 274 H Preliminary micro results at discharge 03/25/19 17:15 Sputum Culture - Preliminary Sputum - Aerosol Induced Gram negative bacillus 03/25/19 12:40 Blood Culture - Preliminary Blood 03/25/19 12:33 Blood Culture - Preliminary Blood Medical - DS: A/P - Patient/Caregiver Discharge Instructions Activity: increase activity as tolerated Diet: Regular Diet Additional Instructions: -Continue PO Fluconazole 400 mg once daily. will plan for a 6-month course with weekly monitoring of CBC, CMP. Fax results to [phone] Follow-up with ID clinic in 2 weeks Prescriptions: Fluconazole [Diflucan] 400 mg PO DAILY #30 tab Transmission Status: Pending to [id number] - Problem Maintenance (1) Cryptococcal pneumonitis Status: Acute - Follow up Plan Follow up with: Angelito Childress MD [Physician] - Everton Boucher MD [Primary Care Provider] - Disposition: Home, Self-Care Prognosis: Fair Rehab Potential: Fair I certify that the patient requires SNF services: No Overall status at discharge: patient is progressing back to baseline
--- NOTE | 2019-03-27 20:03 | Infectious Disease Prog Note ---
Subjective Patient information: Note initiated : 03/27/19 at 8:00 pm Service Date, if different from initiated Date: [] Patient: Nuno Eugene 79 y/o M admitted on 03/25/19 for Shortness of breath. Chief Complaint: [] Interval history: Pt doing fine. Denies any new symptoms. Endorses baseline cough with no sputum. Discussed f/u plans in ID clinic, continuing Fluconazole for 6 mnths. Objective Objective Narrative: ao x 3, in nad no thrush chest cta, has occasional crackles over right posterior lung s1 s2 normal, no murmurs auscultated bs ++, nttd - Vital Signs Vital signs: Vital Signs Temp Pulse Resp BP BP Pulse Ox 03/27/19 12:28 36.2 C 18 125/72 96 03/27/19 08:00 36.2 C 18 138/74 96 03/27/19 03:24 36.5 C 60 14 125/72 96 03/26/19 23:15 36.5 C 80 14 104/61 95 Intake and Output 03/27/19 03/27/19 03/27/19 05:59 13:59 21:59 Intake Total 450 700 Output Total 550 Balance -100 700 Intake: Oral 450 700 Output: Void Amount 550 Other: Meal Breakfast Percent of Meal Consumed 100% Feeding Ability Independent Urine Appearance Clear Urine Color Bright Yellow Urine Odor Normal Intake & Output: Intake & Output 03/27/19 03/27/19 03/27/19 05:59 13:59 21:59 Intake Total 450 700 Output Total 550 Balance -100 700 Intake: Oral 450 700 Output: Void Amount 550 Other: Meal Breakfast Percent of Meal Consumed 100% Feeding Ability Independent Urine Appearance Clear Urine Color Bright Yellow Urine Odor Normal - Lab 03/27/19 06:04 03/27/19 06:04 Most recent lab results Calcium 8.9 mg/dl (8.6-10.4) 03/27/19 06:04 Phosphorus 3.6 mg/dL (2.7-4.5) 03/27/19 06:04 Magnesium 1.7 mg/dL (1.6-2.5) 03/27/19 06:04 Microbiology 03/25/19 12:40 Blood Blood Culture - Preliminary 03/25/19 12:33 Blood Blood Culture - Preliminary 03/25/19 17:15 Sputum - Aerosol Induced Gram Stain - Final 03/25/19 17:15 Sputum - Aerosol Induced Sputum Culture - Final Pseudomonas aeruginosa 03/25/19 17:15 Sputum - Aerosol Induced Fungal Smear - Final Assessment and Plan - Narrative A/P Narrative: A: 1. Cryptococcal infection of both lungs: cough is the only symptom - no [employer] or eye involvement based on exam and MRI brain/orbit with contrast done today. In absence of clinical symptoms such as headache, neck stiffness, focal neuro deficit and normal neuroimaging; will defer LP as benefits outweigh risks of invasive procedure - risk factors: living in endemic area ([facility]), frequent contact with birds, age - CT chest on 03/04 showed 5.8 x 3.3 x 4.8 cm mass in right lower lobe and 1.4 x 2.3 x 1 cm mass in left upper lobe. s/p biopsy of right lung mass on 03/18 with path showing acute and chronic granulomatous inflammation and cryptococci - sputum Cx growing Pseudomonas aeruginosa suggest colonization, as pt has no shortness of breath, is not requiring oxygen, is not tachypneic. The chest infiltrates have been there since February 2019 and are consistent with chronic infection. If it was Pseudomonas pneumonia pt would have worsened by now. 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 gattii infection in immunocompetent patients. Recommendations: - Start PO Fluconazole 400 mg once daily. will plan for a 6-month course with weekly monitoring of CBC, CMP. Fax results to [phone] - send induced sputum for gram stain and C/S, fungal stain and C/S - repeat CMP, CBC weekly - await serum cryptococcal antigen which was sent out by PCP last week - will call pt next week. Pt counseled to call us in case there is worsening of respiratory status. In that case, will consider CT chest. If there is concerns for IRIS, will start PO Prednisone at 0.5 mg/kg with a taper over 2 weeks. If there is new - F/u with ID clinic 2 weeks after discharge. Angelito Childress MD Infectious diseases
== END 2019-03-27 11:12 | disposition home or self-care (01) ==
LOC: MEDSUR 12:11 → ED 12:11 → MEDSUR 17:49
PROVIDERS: ADMIT Internal Medicine; ATTEND Internal Medicine